=== PATIENT | female | born 1965 | race Two or more races ===

== ENCOUNTER 2016-03-25 12:16 | Emergency (ER) | payer MEDICAID, OTHER ==
[2016-03-25] MEDS ORDERED: FAMOTIDINE 10 MG/ML 2ML VIAL ONE (15:05)
[2016-03-25] MEDS ORDERED: DIPHENHYDRAMINE HCL 50 MG/1 ML VIAL ONE (15:05)
[2016-03-25 15:09] LABS: ABSOLUTE NEUTROPHIL COUNT 5.5 K/mm3 (1.8-7.7); BASO # 0.1 K/mm3 (0.0-0.2); BASO % 0.6 % (0.2-1.0); EOS # 0.5 (0.0-0.5); EOS % 4.2 % (0.9-2.9); HEMATOCRIT 45.6 % (37.0-47.0); HEMOGLOBIN 14.9 gm/l (12.0-16.0); IMM NEUT # 0.1 K/mm3 (0-0.2); IMM NEUT% 0.6 % (0-1); LYMPH # 5.7 (1.0-4.8); LYMPH % 44.9 % (15-45); MEAN CELL VOLUME 90.3 fl (81.0-99.0); MEAN CORPUSCULAR HEMOGLOBIN 29.5 pg (27.0-31.0); MEAN CORPUSCULAR HGB CONC 32.7 g/dl (33.0-37.0); MEAN PLATELET VOLUME 10.6 fl (7.4-10.4); MONO # 0.8 (0.0-0.8); MONO % 6.6 % (4-12); NEUT % 43.1 % (43-75); PLATELET COUNT 299 K/mm3 (130-400); RED CELL DISTRIBUTION WIDTH 13.4 % (11.5-14.5)
[2016-03-25 15:13] LABS: URINE BILIRUBIN NEGATIVE (NEGATIVE); URINE BLOOD NEGATIVE (NEGATIVE); URINE GLUCOSE (UA) NEGATIVE (NEGATIVE); URINE LEUKOCYTE ESTERASE NEGATIVE (NEGATIVE); URINE NITRITE NEGATIVE (NEGATIVE); URINE PROTEIN NEGATIVE (NEGATIVE); URINE UROBILINOGEN NORMAL (0-1 mg/dl)
[2016-03-25 15:21] LABS: ALB/GLOB RATIO 1.1 (>1.0); ALBUMIN 4.4 gm/dL (3.5-5.7); CALCIUM 10.1 mg/dL (8.6-10.3)
[2016-03-25 15:22] LABS: URINE APPEARANCE CLEAR; URINE COLOR YELLOW
== END 2016-03-25 15:56 | disposition home or self-care (01) ==
LOC: ED 12:16
DX: K29.70 Gastritis, unspecified, without bleeding (principal); R07.9 Chest pain, unspecified; E11.9 Type 2 diabetes mellitus without complications; Z79.84 Long term (current) use of oral hypoglycemic drugs; T46.6X5A Adverse effect of antihyperlipidemic and antiarteriosclerotic drugs, initial encounter; Y92.9 Unspecified place or not applicable

== ENCOUNTER 2016-05-25 04:40 | Emergency (ER) | payer SELFPAY ==
[2016-05-25] MEDS ORDERED: IOPAMIDOL 300 (61%) 100 ML VIAL IV ONE (04:41)
[2016-05-25] MEDS ORDERED: MAALOX/LIDO2%VISC/SIMETHICONE 40 ML BOT ONE (04:58)
[2016-05-25 05:39] LABS: ALB/GLOB RATIO 1.1 (>1.0); ALBUMIN 3.8 gm/dL (3.5-5.7); CALCIUM 9.6 mg/dL (8.6-10.3)
[2016-05-25 05:40] LABS: ABSOLUTE NEUTROPHIL COUNT 8.5 K/mm3 (1.8-7.7); BASO # 0.1 K/mm3 (0.0-0.2); BASO % 0.4 % (0.2-1.0); EOS # 0.5 (0.0-0.5); EOS % 3.4 % (0.9-2.9); HEMATOCRIT 41.1 % (37.0-47.0); HEMOGLOBIN 13.4 gm/l (12.0-16.0); IMM NEUT # 0.1 K/mm3 (0-0.2); IMM NEUT% 0.6 % (0-1); LYMPH % 28.6 % (15-45); MEAN CELL VOLUME 90.9 fl (81.0-99.0); MEAN CORPUSCULAR HEMOGLOBIN 29.6 pg (27.0-31.0); MEAN CORPUSCULAR HGB CONC 32.6 g/dl (33.0-37.0); MEAN PLATELET VOLUME 10.4 fl (7.4-10.4); MONO # 0.9 (0.0-0.8); MONO % 6.1 % (4-12); NEUT % 60.9 % (43-75); PLATELET COUNT 268 K/mm3 (130-400)
[2016-05-25 06:05] LABS: URINE BILIRUBIN NEGATIVE (NEGATIVE); URINE BLOOD TRACE (NEGATIVE); URINE GLUCOSE (UA) NEGATIVE (NEGATIVE); URINE LEUKOCYTE ESTERASE NEGATIVE (NEGATIVE); URINE NITRITE NEGATIVE (NEGATIVE); URINE PROTEIN NEGATIVE (NEGATIVE); URINE UROBILINOGEN 1 mg/dL (0-1 mg/dl)
[2016-05-25 06:08] LABS: URINE APPEARANCE CLEAR; URINE COLOR YELLOW
[2016-05-25 06:11] LABS: URINE BACTERIA FEW; URINE EPITHELIAL CELLS MODERATE /hpf; URINE WBC 0-1 /hpf
--- NOTE | 2016-05-25 08:14 | CT ---
Exam: CT abdomen and pelvis with contrast COMPARISON: None INDICATION: Epigastric pain for 3 days, elevated WBC. TECHNIQUE: CT examination of the abdomen and pelvis was obtained following the administration of 100 mL Isovue-300 intravenous contrast. FINDINGS: There is a well-circumscribed rounded low-density mass with smooth margins anterior to the coccyx which measures up to 4.4 x 4.1 x 2.9 cm. The adjacent bone is not eroded. The rectal wall just anterior to the lesion is normal. The uterus is present, and demonstrates heterogeneous enhancement likely reflecting underlying fibroids. There is no adnexal mass. Urinary bladder is unremarkable. There is sigmoid diverticulosis without evidence of diverticulitis. There is no bowel obstruction, free air or free intraperitoneal fluid. The appendix is normal. The gallbladder is absent. No biliary ductal dilation. Duodenal diverticulum is appreciated within the transverse portion of the duodenum. No inflammatory changes are seen in this location. Hepatic steatosis. Pancreas is within normal limits. Spleen is normal in size. There is no adrenal mass. There is a subcentimeter low-density lesion within the upper pole the left kidney which is too small to characterize but statistically likely reflects a cyst. 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 Kidneys otherwise unremarkable. Lung bases are clear. Tiny pericardial effusion is noted. Facet arthropathy is noted within the lower lumbar spine. No worrisome lytic or blastic osseous lesion is identified. IMPRESSION: 1. No acute findings identified to explain patient's acute symptoms. 2. Well-circumscribed lesion within the retrorectal region/precoccygeal space which is of uncertain etiology and significance although it overall appears benign. 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 3. A few incidental findings as above, including tiny pericardial effusion, colonic diverticulosis, fibroid uterus, hepatic steatosis, subcentimeter left renal cysts and post cholecystectomy changes. Preliminary report transmitted to the emergency department from [facility] at 0654 hours 05/25/2016.
== END 2016-05-25 08:15 | disposition home or self-care (01) ==
LOC: ED 04:40
DX: R19.00 Intra-abdominal and pelvic swelling, mass and lump, unspecified site (principal); R10.13 Epigastric pain; E11.9 Type 2 diabetes mellitus without complications; Z79.84 Long term (current) use of oral hypoglycemic drugs